=== PATIENT | male | born 1945 | race Caucasian/White ===

== ENCOUNTER → 2018-06-13 | Outpatient (CLI) | payer MEDICARE | LOC: LABWHC1 10:55 | PROVIDERS: ATTEND Internal Medicine Interventional Cardiology | DX: E78.2 Mixed hyperlipidemia (principal) | CPT/HCPCS: 36415; 80061; 84450; 84460 ==

== ENCOUNTER 2019-09-15 07:42 | Emergency (ER) | payer MEDICARE ==
[2019-09-15 07:47] LABS: Glucose,Whole Blood 94 mg/dL (75-99)
--- NOTE | 2019-09-15 09:09 | ED ---
CPR HPI - General Chief Complaint: Cardiac Arrest/CPR Stated Complaint: cardiac arrest Time Seen by Provider: 09/15/19 07:42 Source: patient, EMS, RN notes reviewed, old records reviewed Mode of arrival: EMS Limitations: no limitations - History of Present Illness Initial Comments: This is a 74-year-old male with a history of COPD coronary artery disease with stent hypertension former smoker former alcohol user history of basal cell cancer of the chest and squamous cell cancer of the face apparently has had 2 days of difficulty breathing neck getting better. He did request his take him to the hospital she called 911 initiated upon arrival patient was found be demonstrating agonal breathing and unresponsiveness. His states that she left the room for couple minutes which came back he was slumped over unresponsive. EMS was called and 7:13 AM and arrived at 7:20 AM. ACLS protocol was started including intubation with a #8 oral tracheal tube external jugular vein on the right was used for IV access and patient was placed on a Guille 3 device. He was transported to emergency department he went from asystole to a PEA type rhythm. No spontaneous pulses were obtained. The patient arrives to the emergency department with the above. No trauma reported. No nausea no vomiting reported per family. Patient did have nebulizers at home he had oxygen for home but did not use it is saturations were normally adequate per his . - Related Data Home Medications Medication Instructions Recorded Confirmed Albuterol Inhaler (Mhu) [Ventolin 2 puff INHALATION RT-Q6H PRN 10/26/15 10/26/15 Hfa Inhaler (Mhu)] Albuterol Nebulized [Ventolin 2.5 mg INHALATION RT-Q4H 10/26/15 10/26/15 Nebulized] Amitriptyline HCl 50 mg PO HS 10/26/15 10/26/15 Budesonide/Formoterol Fumarate 2 puff INHALATION RT-BID 10/26/15 10/26/15 [Symbicort 160-4.5 Mcg Inhaler] Hydrochlorothiazide [Hydrodiuril] 25 mg PO DAILY 10/26/15 10/26/15 Ipratropium/Albuterol Sulfate 1 puff INHALATION QID 10/26/15 10/26/15 [Combivent Respimat Inhaler] Lidocaine HCl [Aspercreme 1 applic TOPICAL DAILY PRN 10/26/15 10/26/15 Lidocaine] Lisinopril [Zestril] 10 mg PO DAILY 10/26/15 10/26/15 Loratadine 10 mg PO HS 10/26/15 10/26/15 Omeprazole [PriLOSEC] 20 mg PO AC-BRKFST 10/26/15 10/26/15 guaiFENesin [Mucinex] 600 mg PO BID 10/26/15 10/26/15 Previous Rx's Medication Instructions Recorded Aspirin 81 mg PO DAILY #30 chew 10/28/15 Atorvastatin [Lipitor] 80 mg PO HS #30 tab 10/28/15 Metoprolol Tartrate [Lopressor] 25 mg PO BID #60 tab 10/28/15 Nitroglycerin Sl Tabs [Nitrostat] 0.4 mg SUBLINGUAL Q5M PRN #25 tab 10/28/15 Ticagrelor [Brilinta] 90 mg PO BID #60 tab 10/28/15 predniSONE 10 mg PO DIRECTED #60 tab 10/28/15 Allergies Allergy/AdvReac Type Severity Reaction Status Date / Time No Known Allergies Allergy Verified 10/26/15 16:52 Review of Systems ROS Statement: Those systems with pertinent positive or pertinent negative responses have been documented in the HPI. ROS Other: All systems not noted in ROS Statement are negative. Limitations: ROS unobtainable due to patients medical condition Past Medical History Past Medical History: Cancer, COPD, Hypertension Additional Past Medical History / Comment(s): Chronic back pain, skin cancer, degenerative disc disease, exposure to agent orange. History of Any Multi-Drug Resistant Organisms: None Reported Past Surgical History: Hernia Repair Additional Past Surgical History / Comment(s): Hernia repair, basal cell skin cancer removed from the chest, squamous cell skin cancer removed from the right baptism recently. Past Anesthesia/Blood Transfusion Reactions: No Reported Reaction Past Psychological History: No Psychological Hx Reported Smoking Status: Former smoker Past Alcohol Use History: None Reported Past Drug Use History: None Reported - Past Family History Father Family Medical History: Coronary Artery Disease (CAD) Additional Family Medical History / Comment(s): Father at age 62 from myocardial infarction. Mother Family Medical History: Coronary Artery Disease (CAD) Additional Family Medical History / Comment(s): Mother in her 60s from a stroke with previous history of myocardial infarction. Sister(s) Additional Family Medical History / Comment(s): He has 5 sisters and one from lung cancer. Brother(s) Additional Family Medical History / Comment(s): He has 2 full brothers and 3/2 brothers. One has heart disease status post CABG. Son(s) Family Medical History: Asthma General Exam - General Exam Comments Initial Comments: This is a well-developed sec appearing male unresponsive with CPR progress Limitations: no limitations General appearance: other (Unresponsive) Head exam: Present: atraumatic Eye exam: Present: other (Pupils fixed and dilated at approximately 5 mm) ENT exam: Present: other (#8 oral tracheal tube in place) Neck exam: Present: normal inspection, other Respiratory exam: Present: decreased breath sounds Cardiovascular Exam: Present: other (Pulseless) GI/Abdominal exam: Present: soft, distended Rectal exam: Present: deferred Extremities exam: Present: normal inspection Back exam: Present: normal inspection Neurological exam: Present: other (Unresponsive) Psychiatric exam: Present: other (Unresponsive) Skin exam: Present: pallor, mottled Course Vital Signs 09/15/19 07:46 Pulse Rate [ 0 L Bilateral Femoral] - Reevaluation(s) Reevaluation #1: 09/15/19 09:08 Patient was evaluated CPR continued briefly. Examination revealed agonal complexes on the monitor with no pulses. I did use a Doppler no pulses obtained. Patient was pronounced at 7:46 AM Reevaluation #2: 09/15/19 09:08 I did meet with the patient's and son and did discuss the events with them. Reevaluation #3: 09/15/19 10:09 I did discuss the case with the certified medical biller's office. The patient will be released. Dr. Nettles's office was contacted and he will sign the certificate. Medical Decision Making - Medical Decision Making Patient did present with 2 days of shortness of breath and went to a cardiac arrest after EMS was summoned. ACLS protocol was accomplished but without good results. Patient was pronounced shortly after arrival to the emergency department. I did discuss the case with multiple individuals. Patient is released to the home of choice of the family. - Lab Data Lab Results 09/15/19 Range/Units 07:45 POC Glucose (mg/dL) 94 (75-99) mg/dL POC Glu Assistant Oceanographer ID GINA Chou Andre Critical Care Time Critical Care Time: Yes Total Critical Care Time: 31 Critical Care Time: 31 minutes of critical care time which includes his presentation history physical CPR performed for a short period time. Review of old charting was available discussed with the patient's family members including his and son discussion with the certified medical biller's office documentation of the above Disposition Clinical Impression: Sudden cardiac , COPD without exacerbation Disposition: Referrals: [facility],Clinic [Primary Care Provider] - 1-2 days Preliminary Cause of : Sudden cardiac
[2019-09-15 09:12] VITALS: PULSE 0
== END 2019-09-15 12:11 | disposition expired ==
LOC: SUPCPDRO 07:42 → EC 07:42
DX: I46.9 Cardiac arrest, cause unspecified (principal); J44.9 Chronic obstructive pulmonary disease, unspecified; I25.10 Atherosclerotic heart disease of native coronary artery without angina pectoris; I10 Essential (primary) hypertension; G89.29 Other chronic pain; M54.9 Dorsalgia, unspecified; R14.0 Abdominal distension (gaseous); Z79.82 Long term (current) use of aspirin; Z79.899 Other long term (current) drug therapy; Z79.51 Long term (current) use of inhaled steroids; Z87.891 Personal history of nicotine dependence; Z85.828 Personal history of other malignant neoplasm of skin; Z95.5 Presence of coronary angioplasty implant and graft; Z98.890 Other specified postprocedural states; Z82.49 Family history of ischemic heart disease and other diseases of the circulatory system
CPT/HCPCS: 36415; 92950; 99291